=== PATIENT | male | born 1990 | race Native Hawaiian/Other Pacific Islander ===

== ENCOUNTER 2020-07-02 05:59 | Emergency (ER) | payer BC ==
[~2020-07-02] VITALS: Ht 177.8 cm; Wt 122.5 kg
[2020-07-02 06:10] VITALS: TEMP 98.3
[2020-07-02] MEDS ORDERED: ZESTRIL40 MG PO (06:25)
[2020-07-02 06:39] LABS: PLATELET COUNT 273 K/uL (142-355)
[2020-07-02 06:48] LABS: POTASSIUM 4.2 mmol/L (3.6-5.2)
[2020-07-02 10:30] VITALS: BP 159/84
== END 2020-07-02 10:30 | disposition home or self-care (01) ==
LOC: ED 05:59
PROVIDERS: Hospitalist
DX: R10.11 Right upper quadrant pain (principal); R10.13 Epigastric pain; R11.2 Nausea with vomiting, unspecified; K80.20 Calculus of gallbladder without cholecystitis without obstruction; N13.2 Hydronephrosis with renal and ureteral calculous obstruction; I10 Essential (primary) hypertension
CPT/HCPCS: 36415; 80053; 80320; 81000; 82150; 83690; 85027; 96360; 96365; 99284; J1170; J1885; J1956; J2405; J2543; Q9963

== ENCOUNTER 2020-10-11 14:16 | Emergency (ER) | payer BC ==
[~2020-10-11] VITALS: Ht 177.8 cm; Wt 122.5 kg
[~2020-10-11 14:16] MED LIST: ZESTRIL40 MG PO
[2020-10-11 14:28] VITALS: TEMP 97.9
[2020-10-11 14:58] LABS: PLATELET COUNT 378 K/uL (142-355)
[2020-10-11 15:04] LABS: POTASSIUM 3.7 mmol/L (3.6-5.2)
[2020-10-11 17:38] VITALS: BP 140/78
== END 2020-10-11 17:38 | disposition home or self-care (01) ==
LOC: ED 14:16
PROVIDERS: Family Medicine
DX: K29.70 Gastritis, unspecified, without bleeding (principal); K80.80 Other cholelithiasis without obstruction; Z20.822 Contact with and (suspected) exposure to COVID-19
CPT/HCPCS: 80053; 82150; 83690; 85027; 87635; 96374; 96375; 99284; J2175; J2405; J3490; U0003